=== PATIENT | female | born 1995 | race Caucasian/White ===

== ENCOUNTER 2016-12-01 00:33 | Emergency (ER) | payer SELFPAY ==
[~2016-12-01] VITALS: Ht 160 cm; Wt 107.1 kg
[~2016-12-01 00:33] MED LIST: AUGMENTIN875 MG PO; CIPRO500 MG PO; DIFLUCAN150 MG PO; DONNATAL1 TABLET PO; FLAGYL500 MG PO; FLEXERIL10 MG PO; IBUPROFEN600 MG PO; KEFLEX500 MG PO; MACROBID100 MG PO; MAGIC MOUTHWASH1 ML MM; MEDROL DOSEPAK4 MG PO; NAPROSYN500 MG PO; NORCO 5/3251 TABLET PO; PERCOCET 5/31 TABLET PO; PYRIDIUM100 MG PO; TYLENOL WITH C1 EACH PO; ULTRAM50 MG PO; ZANTAC150 MG PO; ZOFRAN4 MG PO
[2016-12-01 01:27] LABS: HEMATOCRIT 40.7 % (36.0-46.0); MCH 31.2 PG (29.0-34.0); MCHC 35.9 G/DL (30.0-36.0); MEAN PLAT.VOLUME 10.2 uM^3 (9.5-12.4); PLATELET COUNT 214 K/uL (156-360); RBC DIS.WIDTH-CV 12.4 % (11.8-14.6); RBC DIS.WIDTH-SD 38.2 % (39-53); RED BLOOD COUNT 4.68 M/uL (3.80-5.20); WHITE BLOOD COUNT 8.1 K/uL (4.1-10.2)
[2016-12-01 01:37] LABS: CHLORIDE 107 mEq/L (99-109); POTASSIUM 3.8 mEq/L (3.7-5.4); SODIUM 137 mEq/L (136-147)
[2016-12-01 01:39] LABS: GLUCOSE 93 mg/dL (70-99)
[2016-12-01 01:40] LABS: ANION GAP 8 MEQ/L (2-14)
[2016-12-01 01:43] LABS: GFR ESTIMATE (CALCULATED) > 59 mL/min/
[2016-12-01 01:44] LABS: UREA NITROGEN (BUN) 13 mg/dL (9-23)
[2016-12-01 01:48] LABS: TROP-I INTERPRETATION NEGATIVE; TROPONIN-I < 0.01 ng/mL (0.0-0.30)
[2016-12-01 03:05] LABS: TROP-I INTERPRETATION NEGATIVE; TROPONIN-I < 0.01 ng/mL (0.0-0.30)
[2016-12-01] MEDS ORDERED: ZANTAC150 MG PO (03:17)
[2016-12-01 03:39] VITALS: BP 110/84
== END 2016-12-01 03:43 | disposition home or self-care (01) ==
LOC: EME 00:33
PROVIDERS: Emergency Medicine
DX: R07.89 Other chest pain (principal); J20.9 Acute bronchitis, unspecified
CPT/HCPCS: 71020; 80048; 84484; 85027; 93005; 99281; 99285

== ENCOUNTER → 2017-02-12 | Outpatient (CLI) | payer OTHER | END | disposition home or self-care (01) | LOC: RES 09:00 | DX: R05 Cough (principal) | CPT/HCPCS: 94060; 94726; 94729 ==